=== PATIENT | female | born 1990 | race Hispanic/Latino ===

== ENCOUNTER 2019-07-30 10:55 | Outpatient (CLI) | payer OTHER ==
--- NOTE | 2019-07-30 12:10 | ULT ---
EXAM: OB ultrasound COMPARISON: None. HISTORY: female. Evaluate size, dates, and anatomy. TECHNIQUE: Multiplanar grayscale and color Doppler transabdominal sonographic images are obtained. FINDINGS: There is a single intrauterine gestation in cephalic presentation. Cardiac Doppler demonstr ates heart tones with a heart rate of 140 beats per minute. The placenta is located anteriorly without evidence of placenta previa. A few hypoechoic areas are seen within the body of th e placenta likely related to placental lakes or areas of fibrin deposition. There is a normal amount of amniotic fluid with an amniotic fluid index of 12.65 centimeters. The cervical length based on transabdominal imaging measures 3.2 centimeters based on transabdominal imaging. biometry measurements: BPD 6.06 cm -- 24 weeks 5 days HC 22.08 cm -- 24 weeks 1 day AC 20.07 cm -- 24 weeks 5 days FL 4.27 cm -- 24 week The estimated gestational age by ultrasound is 24 weeks 3 days with an ASHWIN on11/19/2019. Gestational ag e by the last menstrual period is 24 weeks. The estimated weight by ultrasound is 689 g (1 pound, 8 ounces). This represents 59 percentile for weight. A 4 chambered heart is visualized. The cerebellum, visualized portions of the spine, kidneys, u rinary bladder, and cord insertion demonstrate a normal sonographic appearance. A three-vessel cord is not visualized, but there is flow on either side of the urinary bladder sugges ting a three-vessel cord.. No anomalies are seen. IMPRESSION: 1. Single intrauterine gestation in cephalic presentation with heart tones documented. Estimat ed gestational age by ultrasound is 24 weeks 3 days. 2. Estimated weight is 689 g (1 pound, 8 ounces). 3. Amniotic fluid index is 12.65 centimeters.
== END 2019-07-30 10:56 | disposition home or self-care (01) ==
LOC: BICULT 10:55
PROVIDERS: ATTEND Nurse Practitioner
DX: Z34.82 Encounter for supervision of other normal pregnancy, second trimester (principal); Z3A.24 24 weeks gestation of pregnancy
CPT/HCPCS: 76805

== ENCOUNTER 2019-11-06 00:08 | Inpatient (IN) | payer OTHER, SELFPAY ==
[2019-11-06 00:49] VITALS: BMI 33.1
[2019-11-06] MEDS: Lactated Ringer's 1,000 ML IV SCH ×3 (03:15→08:28)
[2019-11-06] MEDS ORDERED: Butorphanol Tartrate 1 MG/ML VIAL SLOW IVP PRN (03:28)
[2019-11-06] MEDS ORDERED: Promethazine HCl 25 MG/ML VIAL IM PRN ×3 (03:28→12:15)
[2019-11-06] MEDS ORDERED: Lidocaine 1% (PF) 30 ML VIAL SC PRN (03:28)
[2019-11-06] MEDS ORDERED: Ibuprofen 800 MG TAB PO PRN (03:28)
[2019-11-06] MEDS ORDERED: Acetaminophen 500 MG TAB PO PRN (03:28)
[2019-11-06] MEDS ORDERED: Carboprost 250 MCG/ML AMP IM PRN (03:28)
[2019-11-06] MEDS ORDERED: hydrALAZINE 20 MG/ML VIAL SLOW IVP PRN ×2 (03:28→12:15)
[2019-11-06] MEDS ORDERED: Methylergonovine 0.2 MG/ML VIAL IM PRN (03:28)
[2019-11-06] MEDS ORDERED: Ondansetron PF 4 MG/2 ML Vial IVP PRN ×3 (03:28→12:15)
[2019-11-06] MEDS ORDERED: Diphenoxylate HCl/Atropine Tablet PO PRN ×2 (03:28)
[2019-11-06] MEDS ORDERED: HYDROcodone/Acetaminophen 5/325 mg Tablet PO PRN ×4 (03:28→12:15)
[2019-11-06] MEDS ORDERED: Misoprostol 200 MCG TAB PR PRN (03:28)
[2019-11-06] MEDS ORDERED: Zolpidem Tartrate 5 MG TAB PO PRN (03:28)
[2019-11-06] MEDS ORDERED: Fentanyl 4 mcg/Bup 0.1% Cadd 100 ML ONE (03:41)
[2019-11-06 03:48] LABS: Hemoglobin 12.2 g/dL (12.0-16.0); Mean Corpuscular HGB CONC 34.9 g/dL (32.0-36.0); Mean Corpuscular Hemoglobin 32.1 pg (27.0-31.0); Mean Corpuscular Volume 91.8 fL (78.0-98.0); Mean Platelet Volume 7.9 fL (7.4-10.4); Platelet Count 227 thou/uL (130-400); RBC Distribution Width 12.7 % (11.5-14.5); Red Blood Cell (RBC) Count 3.81 mill/uL (4.20-5.40); White Blood Cell (WBC) Count 5.9 thou/uL (4.8-10.8)
[2019-11-06 04:39] LABS: HBSAg Index 0.17 S/CO (0-0.99); Hep B Surf Ag Non-Reactive S/CO (NonReactive)
[2019-11-06] MEDS ORDERED: Naloxone HCl 0.4 mg/ml Vial IVP PRN ×2 (04:39)
[2019-11-06] MEDS ORDERED: diphenhydrAMINE 50 MG/ML VIAL IVP PRN (04:39)
[2019-11-06] MEDS ORDERED: Lactated Ringer's 500 ML IV PRN (04:39)
[2019-11-06] MEDS ORDERED: ePHEDrine/0.9% NaCl/PF SYRINGE 50 mg/10 ml SLOW IVP PRN (04:39)
[2019-11-06] MEDS ORDERED: Acetaminophen 325 MG TAB PO PRN (04:39)
[2019-11-06] MEDS ORDERED: Fentanyl 4 mcg/Bupivacaine 0.1% Cassette 100 ML EPIDURAL SCH (04:45)
[2019-11-06] MEDS ORDERED: Communication Order-Pharmacy FS SCH (04:45)
[2019-11-06 06:22] LABS: Syphilis Antibody Nonreactive (Nonreactive); Syphilis Antibody Index 0.03 S/CO (<1.00 Non-Reactive)
[2019-11-06] MEDS ORDERED: NS w/ Oxytocin 10 units 500 ML ONE (07:56)
[2019-11-06] MEDS ORDERED: FLU VACC QS2019-20(6MOS UP)/PF 60 MCG/0.5 ML SYRINGE IM ONE (09:00)
[2019-11-06] MEDS: NS / Oxytocin 40 units/1000ml 1,000 ML IV PRN ×2 (09:36→11:47)
[2019-11-06] MEDS ORDERED: diphenhydrAMINE 25 MG CAP PO PRN (12:15)
[2019-11-06] MEDS ORDERED: Adacel (T-DAP) 0.5 ML SYRINGE IM ONE (12:15)
[2019-11-06] MEDS ORDERED: Milk Of Magnesia 30 ML UDCUP PO PRN (12:15)
[2019-11-06] MEDS ORDERED: Bisacodyl 10 MG SUPP PR PRN (12:15)
[2019-11-06] MEDS ORDERED: Benzocaine-Menthol 82.5 ML CAN TOP PRN (12:15)
[2019-11-06] MEDS ORDERED: Lanolin Ointment 7 GM TUBE TOP PRN (12:15)
[2019-11-06] MEDS ORDERED: NS / Oxytocin 40 units/1000ml 1,000 ML IV SCH (12:15)
[2019-11-06] MEDS: Ibuprofen 800 MG TAB PO SCH ×2 (13:40→22:04)
[2019-11-06] MEDS: Ferrous Sulfate 325 MG TAB PO SCH (15:05)
[2019-11-06] MEDS: Docusate Calcium (SURFAK) 240 MG CAP PO SCH (22:04)
[2019-11-07] MEDS: Ibuprofen 800 MG TAB PO SCH (05:05)
[2019-11-07 06:33] LABS: Hemoglobin 11.3 g/dL (12.0-16.0); Mean Corpuscular HGB CONC 34.6 g/dL (32.0-36.0); Mean Corpuscular Hemoglobin 31.9 pg (27.0-31.0); Mean Platelet Volume 7.5 fL (7.4-10.4); Platelet Count 191 thou/uL (130-400); RBC Distribution Width 12.9 % (11.5-14.5); Red Blood Cell (RBC) Count 3.56 mill/uL (4.20-5.40); White Blood Cell (WBC) Count 6.1 thou/uL (4.8-10.8)
[2019-11-07 07:55] VITALS: BP 106/69; TEMP 97.9
[2019-11-07] MEDS ORDERED: Prenatal Vitamin 1 TAB PO SCH (09:00)
[2019-11-07] MEDS: Ferrous Sulfate 325 MG TAB PO SCH (09:18)
[2019-11-07] MEDS: Docusate Calcium (SURFAK) 240 MG CAP PO SCH (09:24)
--- NOTE | 2019-11-07 12:18 | ULT ---
RIGHT LOWER EXTREMITY VENOUS DUPLEX EXAM: Date: 11/07/19 HISTORY: Right leg pain and swelling. FINDINGS: Real-time color Doppler evaluation of the right lower extremity was performed from groin to calf. Thi s includes evaluation of the common femoral, superficial and profunda femoral, saphenous, popliteal, and posterior tibial veins. This shows patent deep venous system. There is normal compressibility and augmentation. There is no evidence of deep venous thrombosis. IMPRESSION: No evidence of deep venous thrombosis of the right lower extremity. POS: OFF
== END 2019-11-07 13:43 | disposition home or self-care (01) | DRG 807 ==
LOC: L&D/OP 00:08 → L&D 03:18 → 3SW 12:10
PROVIDERS: ADMIT Family Medicine; ATTEND Family Medicine
PROC: 10E0XZZ Delivery of Products of Conception, External Approach (ICD-10-PCS; principal; 2019-11-06)
PROC: 10907ZC Drainage of Amniotic Fluid, Therapeutic from Products of Conception, Via Natural or Artificial Opening (ICD-10-PCS; 2019-11-06)
PROC: 4A1HXCZ Monitoring of Products of Conception, Cardiac Rate, External Approach (ICD-10-PCS; 2019-11-06)
DX: O76 Abnormality in fetal heart rate and rhythm complicating labor and delivery (principal); Z37.0 Single live birth; Z3A.38 38 weeks gestation of pregnancy
CPT/HCPCS: 36415; 85027; 86780; 86850; 86900; 86901; 87340; J2590